=== PATIENT | male | born 1955 | race Caucasian/White ===

== ENCOUNTER → 2019-06-09 | Outpatient (CLI) | payer OTHER ==
[~2019-06-09] MED LIST: ASPIRIN EC81 M1 PO; ATRIPLA TABLET1 EACH PO; CARDIZEM CD180 MG PO; FISH OIL 1,4001 EACH PO; MULTI-VITAMIN1 EAC5 PO; PROTONIX40 M2 PO; VERAMYST10 GM NS; ZYRTEC 10 MG TA10 M1 PO
== END ==
LOC: M.CT 08:28
DX: Z13.6 Encounter for screening for cardiovascular disorders (principal)

== ENCOUNTER → 2019-07-08 | Outpatient (CLI) | payer MEDICARE ==
--- NOTE | 2019-07-08 16:35 | CARDNUC ---
[place] [address] CARDIAC NUCLEAR IMAGING REPORT Name: JOHN BUCK Room: [facility]#: [id number] Admission: 07/08/19 Attend Phys: John Cross MD Discharge: Date of : 57 Date of Service: 07/08/19 1635 Report #: [id number] THIS REPORT FOR: //name// APPROVED REPORT Study performed: 07/08/2019 09:44:29 Exam: Nuclear Stress Test Indication: Palpitations , high calcium score Patient Location: Out-Patient Stress Tech: Luisa Vogel Stress Nurse: Marah Dumont RN NM Tech:RENETTA Solis Ht: 6 ft 2 in Wt: 181 lbs BSA: 2.08 m2 BMI: 23.23 Medical History Medical History: pvd Medications: diltiazem, zetia, pravastatin Allergies: codeine, oxycodone, pravastatin Cardiac Risk Factors: age, pvd, former tobacco, fm hx Exercise History: Indeterminate Stress Test Details Stress Test: Pharmacologic stress testing performed using 0.4 mg of regadenoson per 5 mL given IV over 10 seconds. Reason for pharmacologic stress test: physical limitation. HR Resting HR: 59 bpm Max Heart Rate (APMHR): 158 bpm Max HR Achieved: 94 bpm Target HR (85% APMHR): 134 bpm % of APMHR: 59 Recovery HR: 78 bpm BP Resting BP: 122/78 mmHg Max BP: 142/70 mmHg ECG Resting ECG: Sinus Rhythm Stress ECG: Sinus Rhythm ST Change: None Arrhythmia: None Recovery ECG: [place] [address] CARDIAC NUCLEAR IMAGING REPORT Name: JOHN BUCK Room: [facility]#: [id number] Admission: 07/08/19 Attend Phys: John Cross MD Discharge: Date of : 57 Date of Service: 07/08/19 1635 Report #: [id number] Change: None Recovery Arrhythmia: None Clinical Reason for Termination: Completed protocol Exercise duration: 0 min sec Exercise capacity: 1 METs The patient tolerated Lexiscan infusion without significant symptoms. Nurse Comments pt unable to walk on treadmill, walks with cane Stress ECG Conclusion The baseline 12-lead EKG show sinus rhythm without significant ST or T wave abnormality. EKGs obtained during and post Lexiscan infusion show sinus rhythm with no significant ST or T wave changes when compared to baseline. There were no stress-induced arrhythmias. NM EXAM: Myocardial Perfusion REST/STRESS Imaging Protocol: Rest Tc-99m/Stress Tc-99m 1 day Resting Data Rest SPECT myocardial perfusion imaging was performed in supine position 30 minutes following the intravenous injection of 11.1 mCi of Tc-99m Sestamibi. Time of rest injection: 0800 Date: 07/08/2019 The images were gated to evaluate regional wall motion and calculate left ventricular ejection fraction. Administration Route: IV Administration Site: Left AC Pharmacologic Stress Pharmacologic stress test was performed by injecting Regadenoson 0.4 mg IV push followed by the intravenous injection of 33.9 mCi of Tc-99m Sestamibi. Time of stress injection: 0955 Date: 07/08/2019 Administration Route: IV Administration Site: Left AC Gated Stress SPECT was performed 40 minutes after stress injection. The images were gated to evaluate regional wall motion and calculate left ventricular ejection fraction. Prone imaging was [place] [address] CARDIAC NUCLEAR IMAGING REPORT Name: JOHN BUCK Room: [facility]#: [id number] Admission: 07/08/19 Attend Phys: John Cross MD Discharge: Date of : 57 Date of Service: 07/08/19 1635 Report #: [id number] Study: Good Artifact: Mild Diaphragmatic artifact Study Data At rest, the left ventricular ejection fraction was 57%.. Post stress, the left ventricular ejection was 70%.. TID = 1.02. Perfusion Images obtained in the supine position at rest and post stress show mild photopenia of the basal to mid inferior wall that resolves completely with post stress prone imaging suggesting diaphragmatic attenuation artifact. No other significant defects were noted. Wall Motion Normal left ventricular wall motion. Nuclear Conclusion ECG Findings: negative for ischemia Clinical Findings: negative for ischemia Nuclear Findings: negative for ischemia Exercise Capacity: not assessed Left Ventricular Function: normal Risk Study: low Myocardial perfusion images show no defect to suggest infarct or ischemia. Left ventricular systolic function appears normal on gated studies. This is a low risk study. <Conclusion> The baseline 12-lead EKG show sinus rhythm without significant ST or T wave abnormality. EKGs obtained during and post Lexiscan infusion show sinus rhythm with no significant ST or T wave changes when compared to baseline. There were no stress-induced arrhythmias. <ELECTRONICALLY SIGNED> By: Oziel Boss MD, FACC 07/08/19 1635 1635 1635 Oziel Boss MD, FACC /INF
== END ==
LOC: M.NUC 06-11 17:23
DX: R93.1 Abnormal findings on diagnostic imaging of heart and coronary circulation (principal); I73.9 Peripheral vascular disease, unspecified; Z88.5 Allergy status to narcotic agent; Z88.8 Allergy status to other drugs, medicaments and biological substances

== ENCOUNTER → 2019-12-07 | Outpatient (CLI) | payer MEDICARE | LOC: M.RAD 08:42 | DX: M54.5 Low back pain (principal); B20 Human immunodeficiency virus [HIV] disease; G90.09 Other idiopathic peripheral autonomic neuropathy; Z79.83 Long term (current) use of bisphosphonates ==